=== PATIENT | female | born 1985 | race Two or more races ===

== ENCOUNTER 2019-10-09 10:16 | Emergency (ER) | payer SELFPAY ==
[2019-10-09 10:22] VITALS: BP 144/72
--- NOTE | 2019-10-09 10:38 | ER Document Report ---
HPI - HPI Time Seen by Provider: 10/09/19 10:26 Pain Level: Denies Notes: Patient is a 34-year-old female no significant past medical history presents complaining of a lip lesion right lower lip that is been present since September 24. Patient states that it does not hurt and she was only able to get blood out at one point. She has no other concerns or complaints. No history of herpes. Denies drug allergies. Denies any headache, fever, neck pain, changes in vis ion/speech/mentation/hearing, URI, sore throat, chest pain, palpitations, syncope, cough, shortness of breath, wheeze, dyspnea, abdominal pain, nausea/vomiting/diarrhea, urinary retention, dysuria, hematuria, or rash. - ROS Systems Reviewed and Negative: Yes All other systems reviewed and negative Past Medical History - Social History Smoking Status: Never Smoker Family History: Reviewed & Not Pertinent Patient has suicidal ideation: No Patient has homicidal ideation: No - Past Medical History Cardiac Medical History: Reports: Hx Hypertension Past Surgical History: Reports: Hx Abdominal Surgery - gastric sleeve, Hx Section Vertical Provider Document - CONSTITUTIONAL Agree With Documented VS: Yes Notes: PHYSICAL EXAMINATION: GENERAL: Well-appearing, well-nourished and in no acute distress. HEAD: Atraumatic, normocephalic. EYES: Pupils equal round and reactive to light, extraocular movements intact, sclera anicteric, conjunctiva are normal. ENT: EAC clear b/l. TM's intact b/l without erythema, fluid, or perforation. Nares patent and without discharge. oropharynx clear without exudates. No tonsilar hypertrophy or erythema. Moist mucous membranes. No sinus tenderness. Lip: the lower lip has a fleshy appearing growth approx 0.3cm in diameter. Non-tender. No vesiculations or discharge. Does involve the vermilion. NECK: Normal range of motion, supple without lymphadenopathy LUNGS: Breath sounds clear to auscultation bilaterally and equal. No wheezes rales or rhonchi. HEART: Regular rate and rhythm without murmurs, rubs, gallops. Extremities: No cyanosis, clubbing, or edema b/l. Peripheral pulses 2+. Capillary refill less than 3 seconds. NEUROLOGICAL: Cranial nerves grossly intact. Normal speech, normal gait. Normal sensory, motor exams PSYCH: Normal mood, normal affect. SKIN: see above Course - Re-evaluation Re-evalutation: 10/09/19 10:36 I did review the lip lesion with Dr. Benavidez who also looked at the lesion. We are in agreement that nothing needs to be done emergently at this time and she needs to follow-up with Dr. Hong (plastics) for evaluation. Patient is an afebrile, well-hydrated, 34-year-old female who presents with a nonspecific skin lesion to her lower lip. Vitals are acceptable. PE is otherwise unremarkable. Patient is nontoxic-appearing is tolerating p.o. without difficulty. No incision and drainage is warranted at this time. I did review the worse case scenario of a cancerous lesion that needs to be evaluated which is why it is important to follow-up. She is to recheck with the surgeon as reviewed. Recheck with your PCM next week as well. Return to the ED with any other worsening/concerning symptoms. Low suspicion for any other systemic or emergent condition at this time. Patient is in agreement. - Vital Signs Vital signs: Temp Pulse Resp BP Pulse Ox 98.1 F 92 16 144/72 H 100 10/09/19 10:21 10/09/19 10:21 10/09/19 10:21 10/09/19 10:21 10/09/19 10:21 Discharge - Discharge Clinical Impression: Lip lesion Condition: Stable Disposition: HOME, SELF-CARE Additional Instructions: Keep the skin clean Wash with soap and water Tylenol/ibuprofen if needed Take medication as directed Monitor for any worsening symptoms Recheck with your PCM in 3-5 days Schedule an appointment with Dr. Hong for further evaluation and management Return to the ED with any worsening symptoms and/or development of fever, headache, chest pain, palpitations, syncope, shortness of breath, trouble breathing, abdominal pain, n/v/d, abscess, purulent discharge, red streaks, worsening swelling, or other worsening symptoms that are concerning to you. Forms: Elevated Blood Pressure Referrals: CHRIST HONG MD [ACTIVE STAFF] - Follow up in 1 week
== END 2019-10-09 10:37 | disposition home or self-care (01) ==
LOC: ER 10:16
DX: K13.0 Diseases of lips (principal); I10 Essential (primary) hypertension; Z98.84 Bariatric surgery status
CPT/HCPCS: 99282